=== PATIENT | female | born 1980 | race Caucasian/White ===

== ENCOUNTER 2016-08-23 08:41 | Day surgery (SDC) | payer BC ==
[~2016-08-23] VITALS: Ht 176.5 cm; Wt 68.0 kg
[~2016-08-23 08:41] MED LIST: ALLERGY RELIEF10 M1 PO; CACARB500L PO; DIFFERIN TP; FLONASE ALLERG9.9 ML BOTH NARES; MULTIPLE VITAM1 EACH PO
[2016-08-23 09:23] VITALS: BP 99/62
[2016-08-23] MEDS ORDERED: HYDROCODON-ACE1 EAC7 PO (11:58)
[2016-08-23] MEDS ORDERED: IBUPROFEN800 MG PO (11:58)
[2016-08-23 13:00] VITALS: BP 106/50
[2016-08-23 14:00] VITALS: BP 112/56
[2016-08-26 13:54] LABS: INTERNAL CONTROL VALID? YES
== END 2016-08-23 14:50 | disposition home or self-care (01) ==
LOC: SDC 08:41
PROVIDERS: Obstetrics & Gynecology
PROC: 0WPG4YZ Removal of Other Device from Peritoneal Cavity, Percutaneous Endoscopic Approach (ICD-10-PCS; principal; 2016-08-23)
DX: T83.32XA Displacement of intrauterine contraceptive device, initial encounter (principal); Z80.3 Family history of malignant neoplasm of breast; Z80.0 Family history of malignant neoplasm of digestive organs
CPT/HCPCS: 84703; J0131; J1100; J1885; J2175; J2250; J2405; J2710; J2765; J3010